=== PATIENT | male | born 1990 | race Caucasian/White ===

== ENCOUNTER 2018-08-24 09:48 | Inpatient (IN) | payer BC, OTHER ==
[~2018-08-24] VITALS: Ht 180.3 cm; Wt 70.3 kg
--- NOTE | 2018-08-24 11:07 | NUR ---
Intake Assessment; Patient is a 28 year old male, presented to [facility] for Benzodiazepine/ETOH withdrawal. Patient is AOX4, appears moderately intoxicated. Patient admits taking Xanax 4-6 mg PO prior to admission. Patient appears older than age stated, poor eye contact , worried, anxious, easily distracted, complaining of fatigue. Patient's admitting vital signs are as follows; BP 123/79, HR 93, Respirations 20, temperature 98.6, Spo2 of 95% on room air, denies pain at this time. Patient reported no known allergies, and denies any history of seizures. Educated patient regarding the importance of compliance to unit protocols and policies, patient verbalized understanding. Will continue with further assessment when patient is up on the unit.
[2018-08-24 12:00] VITALS: BP 123/79
[2018-08-24] MEDS ORDERED: MELA3TAB PO (12:58)
[2018-08-24] MEDS ORDERED: [UNRECOGNIZED DRUG - OTHER] (12:58)
[2018-08-24] MEDS ORDERED: [UNRECOGNIZED DRUG - CODE] PO (12:58)
[2018-08-24] MEDS ORDERED: DULO60CA45 PO (12:58)
[2018-08-24] MEDS ORDERED: DEXT50CP PO (12:58)
[2018-08-24] MEDS ORDERED: SERT50TA PO (12:58)
[2018-08-24] MEDS ORDERED: GABA-534 PO (12:58)
[2018-08-24] MEDS ORDERED: BUPR1FIL3 SL (12:58)
[2018-08-24] MEDS ORDERED: [UNRECOGNIZED DRUG - OTHER] (12:58)
[2018-08-24] MEDS ORDERED: DULO30CA2 PO (12:58)
[2018-08-24] MEDS ORDERED: [UNRECOGNIZED DRUG - OTHER] (12:58)
[2018-08-24] MEDS ORDERED: [UNRECOGNIZED DRUG - OTHER] (12:58)
[2018-08-24] MEDS ORDERED: DICYCLOMINE HCL 20 MG TABLET PO PRN (13:00)
[2018-08-24] MEDS ORDERED: LOPERAMIDE HCL 2 MG CAPSULE PO PRN ×2 (13:00)
[2018-08-24] MEDS ORDERED: MAGNESIUM HYDROXIDE 30 ML LIQUID UDC PO PRN (13:00)
[2018-08-24] MEDS ORDERED: diphenhydrAMINE 50 MG CAPSULE PO PRN (13:00)
[2018-08-24] MEDS ORDERED: LORAZEPAM 2 MG/1 ML VIAL IM PRN (13:00)
[2018-08-24] MEDS ORDERED: ONDANSETRON 4 MG/2 ML VIAL IM PRN (13:00)
[2018-08-24] MEDS ORDERED: THIAMINE HCL 200 MG/2 ML VIAL IM ONE (13:00)
[2018-08-24] MEDS ORDERED: MAG HYDROX/AL HYDROX/SIMETH 30 ML LIQUID UDC PO PRN (13:00)
[2018-08-24] MEDS ORDERED: DIAZEPAM 5 MG TABLET PO PRN (13:00)
[2018-08-24] MEDS ORDERED: 3 DAY TAPER OF VALIUM-SERENITY PROTOCOL PO PRN (13:00)
[2018-08-24] MEDS ORDERED: ONDANSETRON ODT 4 MG TAB.RAPDIS SL PRN (13:00)
[2018-08-24] MEDS ORDERED: METHOCARBAMOL 750 MG TABLET PO PRN (13:00)
[2018-08-24] MEDS ORDERED: HYDROXYZINE PAMOATE 25 MG CAPSULE PO PRN (13:00)
[2018-08-24] MEDS ORDERED: IBUPROFEN 600 MG TABLET PO PRN (13:00)
[2018-08-24] MEDS ORDERED: ACETAMINOPHEN 325 MG TABLET PO PRN (13:00)
[2018-08-24] MEDS ORDERED: CLONIDINE HCL 0.1 MG TABLET PO PRN (13:00)
[2018-08-24] MEDS ORDERED: DIAZEPAM 10 MG TABLET PO PRN ×2 (13:00)
--- NOTE | 2018-08-24 13:19 | NUR ---
Admission note; Patient is a 28 year old male, presented to [facility] for Benzodiazepine/ETOH/Opiate withdrawal. Patient is awake, oriented to time,name, place and situation. He appears moderately intoxicated. Patient admits taking Xanax 4-6 mg PO 1 hour prior to admission. Patient appears older than age stated, poor eye contact , worried, anxious, easily distracted, complaining of fatigue and lack of sleep. Patient's admitting vital signs are as follows; BP 123/79, HR 93, Respirations 20, temperature 98.6, Spo2 of 95% on room air, denies pain at this time. Patient reported no known allergies, and denies any history of seizures. Educated patient regarding the importance of compliance to unit protocols and policies, patient verbalized understanding. Medical and psychiatric history discussed. Patient denies any history of seizures. Patient denies any past medical history. Patient's PCP is Dr. Jose Antonio Grajeda. Patient reported history of anxiety and depression. Patient verbalized " My father is a requisition approver and he has been fighting anxiety and depression which led him to self medicating himself to help cope with anxiety and depression. I believe that my father's situation had affected my life. I have also been fighting anxiety and depression especially during that year when my sister in law decided to take away her own life, since then i have been having a hard time coping with stress, anxiety and depression". Patient was diagnosed with anxiety and depression in April 2017. He was prescribed Zoloft and Buspar for depression. He reported that he stopped taking his antidepressants 2 months ago. Patient was also prescribed with Xanax for Anxiety in April 2017. His psychiatrist is Dr. Romaine Jackson. He also reported insomnia , he previously took Ambien PRN in the past as a sleep aid, patient stopped taking Ambien in October 2017, he currently uses Marijuana or Melatonin as a sleep aid. He is also currently being counseled by psychologists Guero Wallace and Armen Garsia. Patient denies any history of suicidal ideation or homicidal ideations. Patient denies involuntary psych hospitalization in the past. He denies any withdrawal induced cardiac complications and denies withdrawal induced delirium. Substance use history discussed. Patient reported that he started taking Xanax in April 2017 after he was diagnosed with Anxiety. Patient was initially prescribed with 0.25 mg of Xanax for anxiety daily , he took medication as prescribed for 2 months. He then attempted to stop taking Medication to see how his body will react, at that time patient reported that he experienced night terrors, tactile disturbances, racing thoughts and restlessness. He relapsed after a few months and started self medicating himself on an intermittent basis. At this rate patient has been taking Xanax 1mg/day on daily basis for the past 6 months, patient consumed Xanax 6-8mg yesterday on 08/23/18 and admits taking Xanax 4-6 mg PO 1 hour prior to admission. Patient also reported drinking ETOH , patient started drinking when he was 11 y/o at this rate patient has been drinking ETOH(wine) every other day, patient reported drinking approximately 180 ml to 360 ml of wine every other day for 1 year a half, last consumed on 08/23/18 around 11 PM. Patient also reported taking Suboxone on a daily basis. Patient verbalized, " I started self medicating myself with Suboxone in November to help reduce Opioid withdrawals. Last year i was prescribed Hydrocodone and was on [place] for 4 months due to back pain. When i stopped taking [place] i experienced withdrawal symptoms. In December 2017 my MD prescribed me with Suboxone film 8mg to 12 mg daily to help with my withdrawal symptoms, but 4 months ago I started to taper myself off Suboxone". Currently patient is taking Suboxone film 2 to 3mg per day last taken on 08/24/18 at 6 PM. Patient also reported smoking Marijuana daily, approximately 1-2 grams per day for the past 1 and a half years. He also reported history of using Cocaine on an intermittent basis only, last consumed in 1 gram via nasal insufflation in April 2018, he denies dependence to this substance. Lastly, he reported history of Ativan intermittent use earlier this year, he was getting Ativan from his friend , patient unable to identify exact dose, he last took Ativan in November 2017, he denies dependence to this medication. Patient had multiple attempts in achieving sobriety but remained unsuccessful. Patient's longest sobriety lasted for 6 years which happened when he was 16 to 22 years old. He has been in Treatment Center before when he was 15 years old at [facility] and [facility]. He is motivated and eager to be successful in achieving sobriety . Patient verbalized "I am a [employer] and I feel like the Lord has work for me to do, but i need to prepare myself mentally and physically in order to deliver his work through me. I want to change for the better so i can help my family. I have a great support system and i am determined to achieve sobriety. After my detox treatment here , I am open to other treatment options or whatever it is that needs to be done in order to be fully clean and sober". Patient is admitted to room [facility] under the care of Dr. Hua. Skin check check, redness noted on patient's right ankle and small scratch on his lower back, sites were intact. Oriented patient to unit. Detailed report given to MD. Patient to be seen and evaluated by MD. Addendum: 08/24/18 at 1401 by CAITLIN NUÑEZ RN Clarification; Patient last consumed Subuxone yesterday 08/23/18 at 6 AM. Patient last consumed Xanax today 1 hour prior to admission which is 9 AM on 08/24/18 Addendum: 08/24/18 at 1616 by CAITLIN NUÑEZ RN Patient is moderately intoxicated from Benzodiazepine use but patient is mildly having withdrawal symptoms from Opioid. Will closely monitor patient.
[2018-08-24] MEDS: BUPRENORPHINE HCL 2 MG TAB.SUBL SL SCH (13:50)
--- NOTE | 2018-08-24 13:50 | NUR ---
Medication administration; Patient is currently showing s/s of Opioid withdrawal manifested by diaphoresis, muscle aches, goosebump, stomach cramps, anxiety, agitation, inability to concentrate, flight of ideas. Patient last consumed Suboxone yesterday 08/23/18 at 6 AM. Patient has been tapering himself down from Suboxone when he was at home. MD placed order for Subutex 2mg SL dose to be given to help reduce Opioid withdrawals. Will continue to monitor patient.
[2018-08-24] MEDS ORDERED: DIAZEPAM 5 MG TABLET PO SCH (14:00)
--- NOTE | 2018-08-24 14:00 | NUR ---
MD order (Valium Taper); MD ordered 3 day Valium taper to start today at 1500 to help reduce ETOH withdrawal symptoms. Will closely monitor patient. Seizure and fall precautions observed.
[2018-08-24 14:46] LABS: *AMPHETAMINE, URINE POSITIVE (NEGATIVE); *BARBITURATE, URINE NEGATIVE (NEGATIVE); *CANNABINOID, URINE POSITIVE (NEGATIVE); *COCCAINE, URINE NEGATIVE (NEGATIVE); *OPIATE, URINE NEGATIVE (NEGATIVE); *PHENCYCLIDINE SCREEN,URINE NEGATIVE (NEGATIVE)
[2018-08-24 16:00] VITALS: BP 110/68
[2018-08-24] MEDS: DIAZEPAM 5 MG TABLET PO SCH ×2 (16:35→22:00)
--- NOTE | 2018-08-24 16:35 | NUR ---
COWS and CIWA Assessment; Patient's current COWS score is 13 and CIWA score of 11 manifested by anxiety restlessness, agitation, intermittent sweats, headache, mild tremors, tactile disturbances, muscle aches, stomach cramps. Started patient on a 3 day Valium taper to help reduce ETOH/Benzodiazepine withdrawal symptoms. Will closely monitor patient.
--- NOTE | 2018-08-24 16:51 | NUR ---
UDS Result (amphetamine clarification); Patient's UDS result came back positive for Benzodiazepine, Cannabis and Amphetamine. Clarified amphetamine use with patient. Patient reported being diagnosed with ADHD in November 2017 and was prescribed Dextroamphetamine 50 mg PO daily, he reported taking medication as per MD prescribed daily last consumed 08/23/18.
--- NOTE | 2018-08-24 18:38 | NUR ---
End of shift note; Patient is AOX4, newly admitted client for ETOH/Benzodiazepine and Opiate withdrawal. Patient was started on a 3 day Valium taper and 2 doses of Subutex. Home medications reconciled and reported to MD for approval. Patient last COWS score is 13 and CIWA score of 11 manifested by anxiety and irritability. Patient is easily overwhelmed, withdrawn, yawning, complaining of abdominal cramps, intermittent sweats. All safety measures secured, will continue to monitor patient . All safety measures secured. Met all needs.
--- NOTE | 2018-08-24 19:20 | NUR ---
START OF SHIFT Patient is a 28-year-old male admitted today 08/24/18 for ETOH, benzodiazepine, and opiate withdrawal. Patient is currently on a 3-day Valium taper, tolerating well and he has had one of two doses of Subutex. Patients last COWS was 13 and last CIWA was 11. Patient received no PRN medications per endorsement. Upon assessment, patient appears disheveled and unshaven. Patient reports some anxiety and also has many questions regarding his chronic insomnia. Patient states, "I use cannabis to help me sleep." Patient is alert and oriented, gait noted to be slightly unsteady. Patient is on fall and seizure precautions with no history of seizure. Safety measures in place, side rails up x2, bed locked in low position, call light within reach. Will continue to monitor.
[2018-08-24 19:50] LABS: BASOPHILS % (AUTO) 0.4 % (0.0-2.0); EOSINOPHILS # (AUTO) 0.2 K/uL (0.0-0.7); EOSINOPHILS % (AUTO) 2.2 % (0.0-7.0); HEMATOCRIT 43.5 % (36.7-47.1); HEMOGLOBIN 14.9 g/dL (12.5-16.3); LYMPHOCYTES # (AUTO) 3.2 K/uL (20.0-40.0); LYMPHOCYTES % (AUTO) 37.9 % (20.5-51.5); MEAN CORPUSCULAR HEMOGLOBIN 30.2 uug (23.8-33.4); MEAN CORPUSCULAR HGB CONC 34 g/dL (32.5-36.3); MEAN CORPUSCULAR VOLUME 88.3 fL (73.0-96.2); MONOCYTES # (AUTO) 0.9 K/uL (2.0-10.0); MONOCYTES % (AUTO) 10.2 % (0.0-11.0); NEUTROPHILS # (AUTO) 4.1 K/uL (1.8-8.9); NEUTROPHILS % (AUTO) 49.3 % (38.5-71.5); PLATELET COUNT (AUTO) 250 K/uL (152-348); RED BLOOD CELL COUNT(AUTO) 4.93 MIL/uL (4.06-5.63); WHITE BLOOD COUNT (AUTO) 8.3 K/uL (3.6-10.2)
[2018-08-24 20:00] VITALS: BP 123/69
--- NOTE | 2018-08-24 20:00 | NUR ---
COWS 11, CIWA 12 Patient has elevated HR, chills, sweats, restlessness, yawning, and runny nose. Patient states, "I've been feeling a little dizzy." Current COWS is 11 and CIWA is 12. SN to administer meds as ordered. Safety measures in place, call light within reach. Will continue to monitor.
[2018-08-24 20:08] LABS: ETHANOL < 3 MG/DL (0-0)
[2018-08-24 20:14] LABS: ALANINE AMINOTRANSFERASE 22 U/L (16-63); ALKALINE PHOSPHATASE 53 U/L (50-136); AMYLASE 33 U/L (25-115); ASPARTATE AMINOTRANSFERASE 17 U/L (15-37); BILIRUBIN,TOTAL 0.7 mg/dL (0.2-1.0); CARBON DIOXIDE 29 mmol/L (21-32); CHLORIDE 106 mmol/L (98-107); CREATININE 0.8 mg/dL (0.6-1.3); GLUCOSE 99 mg/dL (74-106); LIPASE 117 U/L (73-393); MAGNESIUM 2.2 mg/dL (1.8-2.4); POTASSIUM 4.3 mmol/L (3.5-5.1); UREA NITROGEN, BLOOD 8 mg/dL (7-18)
[2018-08-24 20:24] LABS: THYROID STIMULATING HORMONE 0.344 mIU/mL (0.358-3.740)
[2018-08-25] VITALS: BP 108/54
--- NOTE | 2018-08-25 | NUR ---
COWS & CIWA DEFERRED COWS and CIWA deferred at this time due to patient sleeping; to be assessed and scored while patient is awake. Respirations are even and unlabored, 14/min. Safety measures in place, side rails up x2, bed locked in low position, call light within reach. Will continue to monitor.
[2018-08-25 04:00] VITALS: BP 112/62
--- NOTE | 2018-08-25 04:00 | NUR ---
COWS & CIWA DEFERRED COWS and CIWA deferred due to patient sleeping; to be assessed and scored while patient is awake. Respirations are even and unlabored. Safety measures in place, side rails up x2, bed locked in low position, call light within reach. Will continue to monitor.
--- NOTE | 2018-08-25 07:20 | NUR ---
END OF SHIFT Patient is a 28-year-old male admitted today 08/24/18 for ETOH, benzodiazepine, and opiate withdrawal. Patient is currently on a 3-day Valium taper, tolerating well; he has had one of two doses of Subutex, second dose is today. Patients last COWS was 11, last CIWA was 12. Patient received no PRN medications during the shift. Patient has requested a pen and his vape for approval. Patient slept for 7 hours, total intake of 1,296 mL, void x1, stool x0. Patient is on fall and seizure precautions with no history of seizure. Safety measures in place, side rails up x2, bed locked in low position, call light within reach. Will endorse to day shift.
--- NOTE | 2018-08-25 07:34 | NUR ---
Start of shift note; Received report from night nurse. Patient is a 28 year old male admitted on 08/24/18 for Benzodiazepine/ETOH/Opiate withdrawals. Patient was started on 3 day Valium taper and 2 doses of of Subutex. Patient slept for 11 hours . Patient's last COWS score is 9 and last CIWA score is 9 per endorsement. All safety measures secured. Will continue to monitor patient.
[2018-08-25 08:00] VITALS: BP 119/56
--- NOTE | 2018-08-25 08:00 | NUR ---
COWS and CIWA Assessment; Patient's current COWS score is 14 and CIWA score of 12 manifested by anxiety restlessness, agitation, intermittent sweats, headache, mild tremors, tactile disturbances, muscle aches, stomach cramps. Patient was placed on a 3 day Valium taper and Subutex doses to help reduce ETOH/Benzodiazepine/Opiate withdrawal symptoms. Will closely monitor patient.
[2018-08-25] MEDS ORDERED: TUBERCULIN,PURIF.PROT.DERIV. 5 TU/0.1 ML TEST ID ONE ×2 (09:00)
[2018-08-25] MEDS: BUPRENORPHINE HCL 2 MG TAB.SUBL SL SCH (09:02)
[2018-08-25] MEDS: FOLIC ACID 1 MG TABLET PO SCH (09:02)
[2018-08-25] MEDS: DIAZEPAM 5 MG TABLET PO SCH ×2 (09:02→20:46)
[2018-08-25] MEDS: THIAMINE HCL 100 MG TABLET PO SCH (09:02)
[2018-08-25] MEDS: MULTIVITAMINS,THERAPEUTIC TABLET PO SCH (09:02)
--- NOTE | 2018-08-25 10:00 | NUR ---
Psychiatrist communication; Patient reported feelings of guilt and shame, depression and anxiety. Encouraged patient to verbalize feelings. Patient denies suicidal ideations or H/I. Patient was seen and evaluated by psychiatrist. Patient refused to take any antidepressant medications. Patient verbalized "I spoke to the psychiatrist , he offered me antidepressants but i don't want to take those medication again. Educated patient regarding the importance of compliance to medication regime and risk and benefits of adhering to MD recommendations, patient verbalized understanding. Therapist came to speak to patient.
[2018-08-25 12:00] VITALS: BP 118/74
--- NOTE | 2018-08-25 12:00 | NUR ---
COWS and CIWA Assessment; Patient's current COWS score is 11 and CIWA score of 10 manifested by anxiety restlessness, agitation, intermittent sweats, headache, mild tremors, tactile disturbances, muscle aches, stomach cramps. Medications were effective in reducing withdrawal symptoms. Will closely monitor patient.
[2018-08-25 16:00] VITALS: BP 113/87
--- NOTE | 2018-08-25 16:44 | NUR ---
COWS and CIWA Assessment; Patient's continues to have COWS score is 11 and CIWA score of 10 manifested by anxiety restlessness, agitation, intermittent sweats, headache, mild tremors, tactile disturbances, muscle aches, stomach cramps. Medications were effective in reducing withdrawal symptoms. Will closely monitor patient.
--- NOTE | 2018-08-25 18:08 | NUR ---
End of shift note; Patient is AOX4, admitted client for ETOH/Benzodiazepine and Opiate withdrawal. Patient was placed on a 3 day Valium taper and 3 doses of Subutex. Patient last COWS score is 12 and CIWA score of 12 manifested by anxiety and irritability. Patient is easily overwhelmed, withdrawn, yawning, complaining of abdominal cramps, intermittent sweats. Patient remained compliant with treatment plan and medication regime. Medications were effective in reducing withdrawal symptoms. Patient participated in group activities and therapies. All safety measures secured, will continue to monitor patient . All safety measures secured. Met all needs. Addendum: 08/25/18 at 1811 by CAITLIN NUÑEZ RN Clarification; COWS score of 11 and CIWA of 10.
[2018-08-25 20:00] VITALS: BP 122/75
--- NOTE | 2018-08-25 22:23 | NUR ---
START OF SHIFT Pt is a 28 y/o male, admitted client for ETOH/Benzodiazepine and Opiate withdrawal.Pt continues on a 3 day Valium taper and 3 doses of Subutex as ordered and is tolerating well. Last COWS score is 11 and CIWA score of 10. Pt presented with anxiety,restlessness,mild nausea,stomach ache,generalized aches and pain. No PRN meds were given per day shift. PO PRN medications offered to relieve symptoms but Pt declined,stated he will only take Valium at bed time.Pt has been compliant with treatment plan and medication regime. All safety measures are in place, call light is within reach, will continue to monitor. Addendum: 08/25/18 at 2227 by RINA OROZCO RN START OF SHIFT ASSESSMENT WAS DONE AT 1930.WRONG TIME ENTERED.
--- NOTE | 2018-08-26 | NUR ---
COWS & CIWA DEFERRED COWS and CIWA deferred due to pt being asleep;respirations are even and unlabored,no s/s of distress noted,v/s refused.All safety measures are in place, call light is within reach, will continue to monitor.
--- NOTE | 2018-08-26 06:58 | NUR ---
END OF SHIFT Pt is a 28 y/o male, admitted client for ETOH/Benzodiazepine and Opiate withdrawl.Pt continues on a 3 day Valium taper and 3 doses of Subutex as ordered and is tolerating well. Last COWS score is 9 and CIWA score of 9. Pt c/o anxiety ,chiils,body ache and mild abdominal pain but refused to take ant PRN medications. No PRN meds were given during the night. Needed prompting to comply with his bedtime meds.Pt has been compliant with treatment plan and medication regime.Pt slept 8 hours,fluid intake was 1400 ml,voided x 3. All safety measures are in place, call light is within reach, will continue to monitor.
--- NOTE | 2018-08-26 07:30 | NUR ---
start of shift note: pt is in stable condition at this time no s/s of pain or discomfort. pt is [facility] benzo/suboxone/etoh withdrawal/dependence. pt is very agitated and restless at this time. pt's last cows 9 and ciwa 9. will address pt's concerns, will continue to monitor pt for any changes.
[2018-08-26] MEDS: BUPRENORPHINE HCL 2 MG TAB.SUBL SL SCH (08:47)
[2018-08-26] MEDS: THIAMINE HCL 100 MG TABLET PO SCH (08:50)
[2018-08-26] MEDS: FOLIC ACID 1 MG TABLET PO SCH (08:50)
[2018-08-26] MEDS: MULTIVITAMINS,THERAPEUTIC TABLET PO SCH (08:50)
[2018-08-26 09:00] VITALS: BP 132/87
[2018-08-26] MEDS ORDERED: DIAZEPAM 5 MG TABLET PO SCH (09:00)
--- NOTE | 2018-08-26 09:00 | NUR ---
cows/ciwa and medication refusal: pt verbalized he is trying to get off suboxone, and does not want anymore subutex. pt verbalizes he feels fine and just wants to discharge. pt's cows 7 and ciwa 8.
[2018-08-26] MEDS ORDERED: CLON0.1T14 PO (12:59)
[2018-08-26 13:06] LABS: HEPATITIS B SURFACE AG Negative (Negative)
[2018-08-26 13:49] VITALS: BP 123/86
--- NOTE | 2018-08-26 13:52 | NUR ---
discharge note: pt was medically cleared by MD and pt was discharged in stable condition, all personal belongings were returned, and pt teaching was administered. pt verbalized understanding. pt was discharged to hospital lobby.
--- NOTE | 2018-08-26 13:54 | NUR ---
Therapist prompted client to attend group therapy sessions.
[2018-08-27 08:10] LABS: TRIIODOTHYRONINE, FREE 4.5 pg/mL (2.0-4.4)
== END 2018-08-26 13:50 | disposition home or self-care (01) | DRG 895 ==
LOC: SRC 09:48
PROVIDERS: ADMIT Family Medicine Addiction Medicine; ATTEND Family Medicine Addiction Medicine
PROC: HZ2ZZZZ Detoxification Services for Substance Abuse Treatment (ICD-10-PCS; principal; 2018-08-24)
PROC: HZ41ZZZ Group Counseling for Substance Abuse Treatment, Behavioral (ICD-10-PCS; 2018-08-25)
DX: F10.230 Alcohol dependence with withdrawal, uncomplicated (principal); F11.23 Opioid dependence with withdrawal; Y90.0 Blood alcohol level of less than 20 mg/100 ml; F17.290 Nicotine dependence, other tobacco product, uncomplicated; F41.1 Generalized anxiety disorder; F13.229 Sedative, hypnotic or anxiolytic dependence with intoxication, unspecified; Z81.1 Family history of alcohol abuse and dependence; Z80.9 Family history of malignant neoplasm, unspecified; F90.9 Attention-deficit hyperactivity disorder, unspecified type; I95.9 Hypotension, unspecified; R94.6 Abnormal results of thyroid function studies
CPT/HCPCS: 36415; 70030-TC; 80307; 80324; 80346; 80349; 83690; 83735; 84443; 84480; 84481; 85025; 86592; 86705; 86803; 87340; 87806; G0480; J3411